=== PATIENT | male | born 1965 | race Caucasian/White ===

== ENCOUNTER 2020-08-17 18:18 | Emergency (ER) | payer SELFPAY ==
[~2020-08-17] VITALS: Ht 177.8 cm; Wt 95.4 kg
[2020-08-17 18:23] VITALS: BP 167/84
[2020-08-17] MEDS ORDERED: ACETAMINOPHEN 500 MG TABLET ONE (19:11)
--- NOTE | 2020-08-17 19:14 | NUR ---
PRESIDENT AND CMO PER MAR.
[2020-08-17] MEDS ORDERED: AMOXICILLIN 500 MG CAPSULE ONE (19:24)
[2020-08-17] MEDS ORDERED: AMOXICILLIN 500 MG CAPSULE PO ONE (19:30)
[2020-08-17] MEDS ORDERED: ACETAMINOPHEN 500 MG TABLET PO ONE (19:30)
== END 2020-08-17 19:49 | disposition home or self-care (01) ==
LOC: ED 19:40
DX: K02.9 Dental caries, unspecified (principal); K04.7 Periapical abscess without sinus
CPT/HCPCS: 41800; 99284

== ENCOUNTER 2020-12-05 17:13 | Emergency (ER) | payer SELFPAY ==
[~2020-12-05] VITALS: Ht 177.8 cm; Wt 94.0 kg
[2020-12-05 17:20] VITALS: BP 166/91
== END 2020-12-05 18:12 | disposition home or self-care (01) ==
LOC: ED 18:06
DX: K08.89 Other specified disorders of teeth and supporting structures (principal)
CPT/HCPCS: 99283